=== PATIENT | female | born 1965 | race Caucasian/White ===

== ENCOUNTER 2017-05-06 10:05 | Emergency (ER) | payer SELFPAY ==
[2017-05-06 10:16] VITALS: BP 170/80; PULSE 87; TEMP 97.9; BMI 37.9
--- NOTE | 2017-05-06 11:01 | PDOC ---
History of Present Illness - General Chief Complaint: Injury Stated Complaint: FALL/ RT FOOT PAIN Time Seen by Provider: 05/06/17 10:45 History Source: Patient Exam Limitations: No Limitations - History of Present Illness Initial Comments: 05/06/17 CHIEF COMPLAINT: Right lateral ankle injury HISTORY OF PRESENT ILLNESS: Inversion injury to right ankle. Patient reports walking down the stairs and sustained an inversion injury missed a step and landed on her right ankle now with right lateral ankle edema and pain. Lateral Occurred: reports: yesterday Severity: Yes: moderate Lower Extremity Pain Location: right: ankle Method of Injury: Yes: fell Modifying Factors: improves with: cold therapy Lower Ext. Injury Location - Specific Injury Location Ankle: right pain, right swelling Extremity Pain Location - Extremity Pain Location Extremity Pain Locations: right: ankle Past History - Past Medical History Allergies/Adverse Reactions: Allergies Allergy/AdvReac Type Severity Reaction Status Date / Time Penicillins Allergy Intermediate Rash Verified 05/06/17 10:08 Home Medications: Ambulatory Orders Ibuprofen [Motrin -] 600 mg PO QID #28 tablet 05/06/17 Oxycodone HCl/Acetaminophen [Percocet 5-325 mg Tablet] 1 tab PO Q4H #20 tablet MDD 6 05/06/17 Other medical history: DENIES. - Psycho/Social/Smoking Cessation Hx Suicidal Ideation: No Smoking History: Never smoked Review of Systems - Review of Systems Constitutional: No: Symptoms Reported Respiratory: No: Symptoms reported Cardiac (ROS): No: Symptoms Reported Musculoskeletal: Yes: Joint Pain, Joint Swelling *Physical Exam - Vital Signs Last Vital Signs Temp Pulse Resp BP Pulse Ox 97.9 F 87 16 170/80 98 05/06/17 10:08 05/06/17 10:08 05/06/17 10:08 05/06/17 10:08 05/06/17 10:08 - Physical Exam Musculoskeletal: negative: Normal Inspection, Decreased Range of Motion, Muscle Spasm, Vertebral Tenderness Extremity: positive: Swelling, Erythema, Inflammation. negative: Delayed Capillary Refill, Pedal Edema, Calf Tenderness Integumentary: positive: Normal Color, Dry, Swelling. negative: Erythema, Ecchymosis, Bruising Neurologic: positive: Alert, Normal Mood/Affect ED Treatment Course - RADIOLOGY Radiology Studies Ordered: Category Date Time Status ANKLE & FOOT-RIGHT* [RAD] Stat Radiology 05/06/17 10:50 Ordered Medical Decision Making - Medical Decision Making 05/06/17 11:49 A/P: Patient here for evaluation to right ankle and foot, x-ray demonstrated a proximal phalanx fracture of the fourth and fifth toe. No acute fracture or dislocation to ankle. Talib wrap, air cast, Eligio tape placed to toe. Crutches. Ice and elevate when at rest Follow up with orthopedics. *DC/Admit/Observation/Transfer Diagnosis at time of Disposition: Toes fractured Qualifiers: Encounter type: initial encounter Toe: lesser toe Fracture type: closed Phalanx : proximal Fracture alignment: nondisplaced Laterality: right Qualified Code(s) : S92.514A - Nondisplaced fracture of proximal phalanx of right lesser toe(s), initial encounter for closed fracture - Discharge Dispostion Disposition: HOME Condition at time of disposition: Good Admit: No - Prescriptions Prescriptions: Ibuprofen [Motrin -] 600 mg PO QID #28 tablet Oxycodone HCl/Acetaminophen [Percocet 5-325 mg Tablet] 1 tab PO Q4H #20 tablet MDD 6 - Referrals Referrals: [facility] [Other] [facility] [Provider Group] - Patient Instructions Additional Instructions: Please follow-up with orthopedic clinic and primary care doctor, outpatient clinic, orthopedics at [facility] given to patient and for outpatient clinic at [facility]. Aircast, Talib wrap, Eligio tape placed on , non weight bearing, Until follow up Crutches - Post Discharge Activity Work/School Note: Back to Work
== END 2017-05-06 12:24 | disposition home or self-care (01) ==
LOC: JERFT 10:05
PROC: 2W3LX1Z Immobilization of Right Lower Extremity using Splint (ICD-10-PCS; principal; 2017-05-06)
DX: S92.514A Nondisplaced fracture of proximal phalanx of right lesser toe(s), initial encounter for closed fracture (principal); W10.8XXA Fall (on) (from) other stairs and steps, initial encounter; Y93.01 Activity, walking, marching and hiking; Y92.89 Other specified places as the place of occurrence of the external cause
CPT/HCPCS: 73610-TC-RT; 73630-TC-RT; 99282-25